=== PATIENT | male | born 1970 | race Caucasian/White ===

== ENCOUNTER 2021-05-12 13:14 | Emergency (ER) | payer BC ==
[~2021-05-12] VITALS: Ht 172.7 cm; Wt 86.2 kg
[2021-05-12 13:15] VITALS: BP 144/93
[2021-05-12 13:16] VITALS: BP 144/93
[2021-05-12] MEDS ORDERED: KETOROLAC 60 MG VIAL (30MG/ML) IM ONE (16:00)
[2021-05-12] MEDS ORDERED: MELO7.5T12 PO (16:32)
== END 2021-05-12 17:15 | disposition home or self-care (01) ==
LOC: EDH 13:14
DX: S80.01XA Contusion of right knee, initial encounter (principal); S83.91XA Sprain of unspecified site of right knee, initial encounter; Z79.1 Long term (current) use of non-steroidal anti-inflammatories (NSAID); W18.39XA Other fall on same level, initial encounter; Y93.89 Activity, other specified; Y92.89 Other specified places as the place of occurrence of the external cause; Y99.8 Other external cause status
CPT/HCPCS: 73562; 96372; 99284; J1885

== ENCOUNTER 2021-06-22 09:11 | Emergency (ER) | payer BC ==
[~2021-06-22] VITALS: Ht 172.7 cm; Wt 86.2 kg
[~2021-06-22 09:11] MED LIST: MELO7.5T12 PO
[2021-06-22 09:12] VITALS: BP 139/92
[2021-06-22] MEDS ORDERED: ORPHENADRINE CITRATE 30 MG/ML ML IM SCH (10:00)
[2021-06-22] MEDS ORDERED: KETOROLAC 60 MG VIAL (30MG/ML) IM SCH (10:00)
== END 2021-06-22 11:44 | disposition home or self-care (01) ==
LOC: EDH 09:11
DX: M23.51 Chronic instability of knee, right knee (principal); Z79.1 Long term (current) use of non-steroidal anti-inflammatories (NSAID); Z79.899 Other long term (current) drug therapy
CPT/HCPCS: 73562; 96372 ×2; 99284; J1885; J2360